=== PATIENT | female | born 1995 | race Caucasian/White ===

== ENCOUNTER → 2017-02-07 | Outpatient (CLI) | payer SELFPAY ==
--- NOTE | 2017-02-07 10:17 | KCIC ---
EXAM: Chest, single view. HISTORY: Positive PPD test. COMPARISON: None. FINDINGS: A frontal view of the chest is obtained. There is no infiltrate, effusion or pneumothorax. The heart is normal in size. IMPRESSION: No acute pulmonary finding. Electronically signed by: Nadia Turner MD (02/07/2017 10:14 AM) [id number]
== END | disposition home or self-care (01) ==
LOC: KCIC 09:46
DX: R76.11 Nonspecific reaction to tuberculin skin test without active tuberculosis (principal)
CPT/HCPCS: 71010